=== PATIENT | male | born 1990 | race Caucasian/White ===

== ENCOUNTER 2018-04-10 21:08 | Emergency (ER) | payer BC ==
[2018-04-10 22:39] LABS: KETONE, URINE AUTO RFX NEGATIVE (NEGATIVE); LEUKOCYTE ESTERASE UR AUTO RFX NEGATIVE (NEGATIVE); MUCUS, URINE RFX SMALL (NEGATIVE); NITRITE, URINE AUTO RFX NEGATIVE (NEGATIVE); RBC, URINE AUTO RFX TNTC /HPF (0-3); SPECIFIC GRAVITY UR AUTO RFX 1.021 (1.002-1.035); SQUAM EPITHELIAL CELL UR AURFX 0 /HPF (0-6); WBC, URINE AUTO RFX 1 /HPF (0-3); YEAST LIKE CELL URINE AUTO RFX SMALL
== END 2018-04-11 00:08 | disposition home or self-care (01) ==
LOC: M ED 04-11 00:08
DX: R31.9 Hematuria, unspecified (principal)
CPT/HCPCS: 81001

== ENCOUNTER → 2018-04-15 | Outpatient (REF) | payer BC ==
[2018-04-15 13:09] LABS: APPEARANCE, URINE CLEAR (CLEAR); BACTERIA, URINE AUTO NEGATIVE (NEGATIVE); BILIRUBIN, URINE AUTO NEGATIVE (NEGATIVE); BLOOD, URINE BLOOD 1+ (NEGATIVE); COLOR, URINE YELLOW (YELLOW); GLUCOSE, URINE (UA) AUTO NEGATIVE (NEGATIVE); KETONE, URINE AUTO NEGATIVE (NEGATIVE); LEUKOCYTE ESTERASE, URINE AUTO NEGATIVE (NEGATIVE); NITRITE, URINE AUTO NEGATIVE (NEGATIVE); PROTEIN, URINE AUTO NEGATIVE (NEGATIVE); RBC, URINE AUTO 1 /HPF (0-3); SPECIFIC GRAVITY URINE AUTO 1.014 (1.002-1.035); SQUAMOUS EPITHELIAL CELL UR AU 0 /HPF (0-6); UROBILINOGEN, URINE AUTO 0.2 mg/dL (0.0-2.0); WBC, URINE AUTO 2 /HPF (0-3)
== END ==
LOC: M SMT 12:54
DX: R31.0 Gross hematuria (principal)
CPT/HCPCS: 81001

== ENCOUNTER → 2018-04-22 | Outpatient (CLI) | payer BC | LOC: M RAD 08:33 | DX: R31.0 Gross hematuria (principal) ==

== ENCOUNTER → 2018-05-10 | Outpatient (CLI) | payer BC ==
[2018-05-10 13:16] LABS: HEMATOCRIT 43.1 % (42.0-52.0); MEAN CORPUSCULAR HEMOGLOBIN 30.7 pg (27.0-33.0); MEAN CORPUSCULAR HGB CONC 34.8 g/dl (32.0-36.5); MEAN CORPUSCULAR VOLUME 88.3 fl (80.0-96.0); PLATELET COUNT, AUTOMATED 263 10^3/uL (150-450); RED BLOOD COUNT 4.88 10^6/uL (4.30-6.10); RED CELL DISTRIBUTION WIDTH 12.2 % (11.5-14.5); WHITE BLOOD COUNT 5.3 10^3/uL (4.0-10.0)
[2018-05-10 13:28] LABS: INR 1.21; PROTHROMBIN TIME 15.5 SECONDS (12.1-14.4)
[2018-05-10 13:29] LABS: PARTIAL THROMBOPLASTIN TIME 32.8 SECONDS (25.4-37.6)
[2018-05-10 13:46] LABS: ANION GAP 5 MEQ/L (8-16); BLOOD UREA NITROGEN 16 MG/DL (7-18); CALCIUM LEVEL 8.9 MG/DL (8.5-10.1); CARBON DIOXIDE LEVEL 31 MEQ/L (21-32); CHLORIDE LEVEL 107 MEQ/L (98-107); CREATININE FOR GFR 0.88 MG/DL (0.70-1.30); GLOMERULAR FILTRATION RATE > 60.0 (>60); GLUCOSE, FASTING 94 MG/DL (70-100); POTASSIUM SERUM 4.8 MEQ/L (3.5-5.1); SODIUM LEVEL 143 MEQ/L (136-145)
== END ==
LOC: M SMT 08:44
DX: Z01.818 Encounter for other preprocedural examination (principal); N20.0 Calculus of kidney
CPT/HCPCS: 80048

== ENCOUNTER 2018-05-13 07:46 | Day surgery (SDC) | payer BC ==
[2018-05-13] MEDS ORDERED: LIDOCAINE 1% MDV 20ML VIAL SQ (08:15)
[2018-05-13] MEDS ORDERED: fentaNYL 100 MCG/2 ML INJECTION (J3010) As Ordered (08:48)
[2018-05-13] MEDS ORDERED: MIDAZOLAM INJ 2 MG/2 ML VIAL (J2250) As Ordered (08:48)
[2018-05-13] MEDS: LR 1,000 ML IV (09:01)
[2018-05-13] MEDS ORDERED: PROPOFOL 200 MG/20 ML VIAL As Ordered (09:41)
[2018-05-13] MEDS ORDERED: LR 1,000 ML IV (10:30)
[2018-05-13] MEDS ORDERED: PERCOCET 5MG/325MG TAB PO (10:30)
[2018-05-13] MEDS ORDERED: ONDANSETRON 4MG/2ML VIAL (J2405) IV (10:30)
== END 2018-05-13 10:58 | disposition home or self-care (01) ==
LOC: M SDC 07:46
DX: N20.0 Calculus of kidney (principal); Z87.891 Personal history of nicotine dependence; Z86.19 Personal history of other infectious and parasitic diseases
CPT/HCPCS: 50590

== ENCOUNTER → 2018-06-03 | Outpatient (CLI) | payer BC ==
[2018-06-10 14:14] LABS: CA Oxalate Dihy 60 % (.); COMMENT Note: (.); Ca Ox Monohydrate 30 % (.)
== END ==
LOC: M SMT 09:16
DX: N20.0 Calculus of kidney (principal)
CPT/HCPCS: 82360

== ENCOUNTER → 2021-01-08 | Outpatient (CLI) | payer SELFPAY ==
[~2021-01-08] MED LIST: FLOM0.4C39 PO; IBUP200C25 PO
== END ==
LOC: M LABSMTC 13:16
PROVIDERS: ATTEND Pediatrics
DX: Z11.52 Encounter for screening for COVID-19 (principal)

== ENCOUNTER → 2021-01-29 | Outpatient (CLI) | payer SELFPAY | LOC: M LABSMTC 13:10 | PROVIDERS: ATTEND Pediatrics | DX: Z11.52 Encounter for screening for COVID-19 (principal) ==

== ENCOUNTER → 2021-10-28 | Outpatient (REF) | LOC: M LABSMTC 13:06 | PROVIDERS: ATTEND Pediatrics | DX: Z11.52 Encounter for screening for COVID-19 (principal) ==

== ENCOUNTER → 2021-11-06 | Outpatient (REF) | LOC: M LABSMTC 13:18 | PROVIDERS: ATTEND Pediatrics | DX: Z11.52 Encounter for screening for COVID-19 (principal) ==